=== PATIENT | female | born 1960 | race Caucasian/White ===

== ENCOUNTER 2017-04-24 06:48 | Day surgery (SDC) | payer OTHER ==
[2017-04-23 14:18] VITALS: Ht 160 cm; Wt 81.0 kg
[2017-04-24] VITALS (10 sets, daily range): BP systolic 111–150; BP diastolic 68–87; PULSE 72–104; RESP 15–20
[~2017-04-24] VITALS: Ht 160 cm; Wt 81.0 kg
[2017-04-24] MEDS ORDERED: BUPIVACAINE 0.25% (MPF) 30 ML INJ ONE (06:56)
[2017-04-24] MEDS ORDERED: OXYCODONE/ACETAMINOPHEN (5/325) TAB PO PRN ×2 (07:00)
[2017-04-24] MEDS ORDERED: ATROPINE 1 MG/10 ML SYRINGE IV PRN (07:00)
[2017-04-24] MEDS ORDERED: ONDANSETRON 4 MG INJ IV PRN (07:00)
[2017-04-24] MEDS ORDERED: LABETALOL HCL 20MG INJ IV PRN (07:00)
[2017-04-24] MEDS ORDERED: MEPERIDINE 25 MG INJ IV PRN (07:00)
[2017-04-24] MEDS ORDERED: DIPHENHYDRAMINE 50 MG INJ IV PRN (07:00)
[2017-04-24] MEDS ORDERED: FENTAnyl 50 MCG/ML VIAL IV PRN ×2 (07:00)
[2017-04-24] MEDS ORDERED: hydrALAzine 20 MG INJ IV PRN (07:00)
[2017-04-24] MEDS ORDERED: morphine (1 MG/ML) 10ML SYRINGE IV PRN ×3 (07:00)
[2017-04-24] MEDS ORDERED: EPHEDrine SULFATE 50 MG/5 ML SYG IV PRN (07:00)
[2017-04-24] MEDS ORDERED: MIDAZOLAM 1 MG/ML 2 ML INJ IV PRN (07:00)
[2017-04-24] MEDS ORDERED: HYDROmorphONE (0.2 MG/ML) 10ML SYG IV PRN ×2 (07:00)
[2017-04-24] MEDS ORDERED: LEVO75TA65 PO (07:57)
[2017-04-24] MEDS ORDERED: PARO10TA76 PO (07:58)
[2017-04-24] MEDS ORDERED: DICY10CA60 PO (07:59)
[2017-04-24] MEDS ORDERED: NEOSTIGMINE 3 MG/3 ML SYRINGE ONE (09:47)
[2017-04-24] MEDS ORDERED: LIDOCAINE 2% (SDV) 5 ML INJ ONE (09:47)
[2017-04-24] MEDS ORDERED: FENTAnyl 50 MCG/ML VIAL ONE (09:47)
[2017-04-24] MEDS ORDERED: MIDAZOLAM 1 MG/ML 2 ML INJ ONE (09:47)
[2017-04-24] MEDS ORDERED: PROPOFOL 20 ML ONE (09:47)
[2017-04-24] MEDS ORDERED: ROCURONIUM 50 MG INJ ONE (09:47)
[2017-04-24] MEDS ORDERED: GLYCOPYRROLATE 0.4 MG INJ ONE (09:47)
[2017-04-24] MEDS ORDERED: SUCCINYLCHOLINE CHLORIDE 100 MG/5 ML SYG IV ONE (09:48)
--- NOTE | 2017-04-24 10:29 | SIPON ---
Date/Time of Note Date/Time of Note DATE: 04/24/17 TIME: 10:28 Operative Report Preoperative Diagnosis right axillary tumor Postoperative Diagnosis same Operation/Procedure Performed 1. excision of right axillary tumor 7 cm incision 7 cm tumor 2. localized adjacent tissue transfer with the use of skin flaps 14 sq cm defect 3. therapeutic injection of local anesthesia Surgeon see signature line health education assistant none Anesthesia: general Estimated blood loss: 0 - 10 ml's Transfusion Required none Specimen right axillary tumor Grafts/Implants none Complications none Ginette ALARCON Apr 24, 2017 10:29
[2017-04-24] MEDS ORDERED: HYDROCODONE/APAP (5/325) TAB PO ONE (10:30)
[2017-04-24] MEDS: HYDROmorphONE (0.2 MG/ML) 10ML SYG IV PRN ×2 (11:06→11:24)
--- NOTE | 2017-04-24 11:06 | OPR ---
DATE OF OPERATION: 04/24/2017 INDICATION: This is a 57-year-old female with ultrasound-guided tissue abnormality in the right axilla with concern for malignancy. Patient requests surgical excision of the right axillary tumor. Risks, alternatives, benefits, and personnel were discussed with the patient. Patient expressed understanding and consents to the operation. POSTOPERATIVE DIAGNOSIS: Right axillary tumor. POSTOPERATIVE DIAGNOSIS: Right axillary tumor. OPERATION PERFORMED: 1. Excision of right axillary tumor with 7 cm size incision and 7 x 2 cm size mass. 2. Localized adjacent tissue transfer with use of skin flaps of 14 square cm defect. 3. Therapeutic subcutaneous injection of a local anesthesia. SURGEON: Joao Day MD. SPECIMEN: Right axillary tumor. COMPLICATIONS: None. ANESTHESIA: General. EBL: 5 cc. OPERATIVE PROCEDURE: Patient was taken to the OR and prepped and draped in usual sterile fashion. Surgical time-out was performed. IV antibiotics were given. Elliptical incision is made over the right axillary mass with a 15 blade using a wide local excision including the skin. Dissection cautery was carried down to the mass and circumferentially excised with margins. Margins were marked with silk was short superior, long lateral, and skin is anterior. The surgical site was hemostatic. Due to the large tissue defect localized adjacent tissue transfer with use of skin flaps was performed. Multilayered closure with interrupted 3-0 Vicryl and skin leif. Therapeutic subcutaneous local anesthesia was injected throughout the incision. Dry dressings were applied. Dictated By: Juhi Negrete /yuan/ /Document#: [id number]
== END 2017-04-24 12:33 | disposition home or self-care (01) ==
LOC: SDS 06:48
PROVIDERS: ATTEND Surgery
DX: D23.5 Other benign neoplasm of skin of trunk (principal); E03.9 Hypothyroidism, unspecified
CPT/HCPCS: 14001; 88307; J1170; J2175; J2250; J2710; J3010; Z7512; Z7610; J7999